=== PATIENT | male | born 1940 | race Caucasian/White ===

== ENCOUNTER → 2024-08-11 | Outpatient (CLI) | payer MEDICARE, OTHER, SELFPAY ==
--- NOTE | 2024-08-11 13:30 | XR_ITS ---
Examination: Abdomen sonogram, Limited Date and time of exam: August 11, 2024 1342 hours INDICATIONS: Diagnosis liver disease Technique: Real-time isaacs scale transabdominal sonographic images of the upper abdomen obtained. Findings: Negative for gallstones Gallbladder wall 0.35 cm no edema Normal common bile duct 0.4 cm Pancreatic head 3.6 cm Liver 16.0 cm smooth contour Normal hepatopedal portal venous flow Patent IVC IMPRESSION: Normal gallbladder Mildly prominent pancreatic head, clinical correlation advised, consider CT scan abdomen pelvis intravenous contrast follow-up
[2024-08-11 14:28] LABS: Misc Send Out* See Sep Rpt
[2024-08-11 15:10] LABS: Basophils % (Auto) 1 % (0-2.5); Eosinophils # (Auto) 0.1 Thou/mm3 (0.0-0.5); Eosinophils % (Auto) 1 % (0-10); Hematocrit 43.6 % (41.0-53.0); Hemoglobin 15.2 g/dL (13.5-16.0); Immature Granulocytes % (Auto) 0 % (0-0); Immature Granulocytes Auto 0.01 Thou/mm3 (0.00-0.00); Lymphocytes # (Auto) 1.5 Thou/mm3 (1.0-4.8); Lymphocytes % (Auto) 38 % (10-50); Mean Corpuscular HGB Conc 34.9 g/dl (31.0-37.0); Mean Corpuscular Hemoglobin 29.8 pg (25.0-35.0); Mean Corpuscular Volume 86 fL (80-100); Monocytes # (Auto) 0.3 Thou/mm3 (0.0-0.8); Monocytes % (Auto) 7 % (0-12); Neutrophils # (Auto) 2.1 Thou/mm3 (1.8-7.7); Neutrophils % (Auto) 53 % (37-80); Nucleated Red Blood Cell % 0 /100 WBC (0); Platelet Count 77 Thou/mm3 (140-440); RDW Standard Deviation 47.1 fL (35.1-43.9)
[2024-08-11 15:13] LABS: INR 1.1 (0.9-1.3); Prothrombin Time 11.8 Seconds (9.0-12.2)
[2024-08-11 15:24] LABS: Alanine Aminotransferase 21 U/L (10-49); Albumin, Serum 4.2 gm/dL (3.4-4.8); Albumin/Globulin Ratio 1.8 (1.2-2.2); Alkaline Phosphatase 114 U/L (46-116); Anion Gap 11 (7-16); Aspartate Amino Transferase 27 U/L (0-34); BUN/Creatinine Ratio 13 Ratio (12-20); Bilirubin,Total 0.6 mg/dL (0.3-1.2); Blood Urea Nitrogen 14 mg/dL (9-23); Calcium 8.8 mg/dL (8.3-10.6); Calcium (Corrected) 8.8 mg/dL (8.5-10.1); Chloride 108 mMol/L (98-107); Creatinine (Component) 1.1 mg/dL (0.6-1.3); Globulin 2.3 gm/dL (2.3-3.5); Glucose 99 mg/dL (74-106); Osmolality,Calculated 291 (275-295); Potassium 3.9 mMol/L (3.4-5.1); Sodium 146 mMol/L (136-145); Total Protein 6.5 gm/dL (5.7-8.2); eGFR > 60 See Note
[2024-08-11 15:45] LABS: Slide Review Platelets confirmed
== END | disposition home or self-care (01) ==
LOC: CDIM 13:26 → COPL 14:27
PROVIDERS: PCP Internal Medicine Hospice and Palliative Medicine; Referring Provider Specialist; Visit Provider Specialist
DX: D69.6 Thrombocytopenia, unspecified (principal); I10 Essential (primary) hypertension; K70.9 Alcoholic liver disease, unspecified
CPT/HCPCS: 36415; 76705; 80053; 82105; 85025; 85610